=== PATIENT | female | born 1965 | race Caucasian/White ===

== ENCOUNTER 2017-12-24 22:23 | Inpatient (IN) | payer MEDICAID, OTHER ==
[2017-12-24 22:41] VITALS: O2SAT 100
--- NOTE | 2017-12-25 00:15 | ED PDOC ---
HPI: Psych/Substance Abuse Time Seen by Provider: 12/24/17 22:50 Chief Complaint (Nursing): Psychiatric Evaluation Chief Complaint (Provider): Psychiatric Evaluation History Per: Patient History/Exam Limitations: no limitations Onset/Duration Of Symptoms: Days (x 2 months) Current Symptoms Are (Timing): Still Present Associated Symptoms: Depression Additional Complaint(s): 52 year old female with a history of depression presents to the ED for crisis evaluation after having suicidal thoughts. Patient reports she is unable to care for herself or her family. She states she lost 15 pounds in the last two months. Patient has no other medical complaints. PMD: none provided Past Medical History Reviewed: Historical Data, Nursing Documentation, Vital Signs Vital Signs: Last Vital Signs Temp 97.8 F 12/24/17 22:38 Pulse 89 12/24/17 22:38 Resp 16 12/24/17 22:38 BP 128/82 12/24/17 22:38 Pulse Ox 100 12/24/17 22:38 - Medical History PMH: Depression - Surgical History Surgical History: No Surg Hx - Family History Family History: States: Unknown Family Hx - Home Medications Home Medications: Ambulatory Orders Medication Instructions Recorded Albuterol HFA [Ventolin HFA 90 2 puff INH Q4 PRN 12/25/17 mcg/actuation (8 g)] Albuterol/Ipratropium [Duoneb 3 3 ml INH QID 12/25/17 mg/0.5 mg (3 ml) UD] Bupropion HCl [Bupropion HCl] 100 mg PO DAILY 12/25/17 Ergocalciferol (Vitamin D2) 1 cap PO QWK 12/25/17 [Vitamin D2] PARoxetine [Paxil] 20 mg PO DAILY 12/25/17 Sodium Chloride [[place] Saline] 1 spray DIXON Q4 PRN 12/25/17 - Allergies Allergies/Adverse Reactions: Allergies Allergy/AdvReac Type Severity Reaction Status Date / Time azelastine Allergy RASH Verified 12/24/17 22:37 prednisone Allergy RASH Verified 12/24/17 22:37 Sulfa (Sulfonamide Allergy RASH Verified 12/24/17 22:37 Antibiotics) budesonide [From Symbicort] AdvReac SHORTNESS Verified 12/25/17 02:09 OF BREATH cetirizine [From Zyrtec] AdvReac HEADACHE Verified 12/25/17 02:09 clonazepam AdvReac HEADACHE Verified 12/25/17 02:09 fluticasone AdvReac HEADACHE Verified 12/25/17 02:09 formoterol [From Dulera] AdvReac SHORTNESS Verified 12/25/17 02:09 OF BREATH levofloxacin AdvReac HEADACHE Verified 12/25/17 02:09 minocycline AdvReac RASH Verified 12/25/17 02:09 mometasone furoate AdvReac HEADACHE Verified 12/25/17 02:09 [From Asmanex Twisthaler] morphine AdvReac DIARRHEA Verified 12/25/17 02:09 Review of Systems ROS Statement: Except As Marked, All Systems Reviewed And Found Negative Psych: Positive for: Depression, Suicidal ideation Physical Exam - Reviewed Nursing Documentation Reviewed: Yes Vital Signs Reviewed: Yes - Physical Exam Appears: Positive for: Non-toxic, No Acute Distress Head Exam: Positive for: ATRAUMATIC, NORMOCEPHALIC Skin: Positive for: Normal Color, Warm, Dry Eye Exam: Positive for: EOMI, Normal appearance, PERRL Neck: Positive for: Normal, Painless ROM, Supple Cardiovascular/Chest: Positive for: Regular Rate, Rhythm. Negative for: Murmur Respiratory: Positive for: Normal Breath Sounds. Negative for: Respiratory Distress Gastrointestinal/Abdominal: Positive for: Normal Exam, Soft Extremity: Positive for: Normal ROM Neurologic/Psych: Positive for: Alert, Oriented (x 3), Mood/Affect (flat) - Laboratory Results Result Diagrams: 12/25/17 00:20 12/25/17 00:20 - ECG O2 Sat by Pulse Oximetry: 100 (RA) Pulse Ox Interpretation: Normal Medical Decision Making Medical Decision Making: Time: 22:50 Impression: 52 year old female with depression and suicidal ideation Initial Plan: --Alcohol serum --CMP --Crisis evaluation --Urine drug --Urine preg --Urine dip --CBC with differentials --1:1 observation --Urinalysis Patient is medically cleared for psychiatric admission. She was evaluated by Crisis and will be admitted to inpatient as per Dr. Franco. Diagnosis is depression. ---- Scribe Attestation: Documented by Zuleika Arroyo, acting as a scribe for Alcides Thomas MD Provider Scribe Attestation: All medical record entries made by the Scribe were at my direction and personally dictated by me. I have reviewed the chart and agree that the record accurately reflects my personal performance of the history, physical exam, medical decision making, and the department course for this patient. I have also personally directed, reviewed, and agree with the discharge instructions and disposition. Disposition - Clinical Impression Clinical Impression: Depression - Patient ED Disposition Is Patient to be Admitted: Yes - Disposition Disposition Time: 01:23 Condition: STABLE - Pt Status Changed To: Hospital Disposition Of: Inpatient - Admit Certification Admit to Inpatient:: After my assessment, the patient will require hospitalization for at least two midnights. This is because of the severity of symptoms shown, intensity of services needed, and/or the medical risk in this patient being treated as an outpatient.
[2017-12-25 00:41] LABS: BASO % 0.5 % (0.0-2.0); EOS % 0.6 % (0.0-4.0); HEMOGLOBIN 13.5 g/dL (12.0-16.0); LYMPH # 1.4 K/uL (1.0-4.3); LYMPH % 19.7 % (20.0-40.0); MEAN CORPUSCULAR HEMOGLOBIN 32.1 pg (27.0-31.0); MEAN CORPUSCULAR HGB CONC 33.8 g/dL (33.0-37.0); MEAN PLATELET VOLUME 8.7 fl (7.2-11.7); MONO # 0.4 K/uL (0.0-0.8); MONO % 6.3 % (0.0-10.0); NEUT # 5.2 K/uL (1.8-7.0); NEUT % 72.9 % (50.0-75.0); RBC 4.21 Mil/uL (3.80-5.20); RED CELL DISTRIBUTION WIDTH 13.9 % (11.5-14.5); WHITE BLOOD COUNT 7.1 K/uL (4.8-10.8)
[2017-12-25 00:51] LABS: ALB/GLOB RATIO 1.1 (1.0-2.1); ALBUMIN 3.8 g/dL (3.5-5.0); ALT/SGPT 29 U/L (9-52); AST/SGOT 15 U/L (14-36); BLOOD UREA NITROGEN 15 mg/dl (7-17); CALCIUM 9.3 mg/dL (8.4-10.2); GFR AFRICAN-AMERICAN > 60; GFR NON-AFRICAN AMERICAN > 60
[2017-12-25 01:29] LABS: SQUAMOUS EPITHIAL 1 /hpf (0-5); URINE BACTERIA RARE (<OCC); URINE BILIRUBIN NEGATIVE (NEGATIVE); URINE BLOOD LARGE (NEGATIVE); URINE CALCIUM OXALATE CRYSTALS FEW /hpf (<OCC); URINE CLARITY CLOUDY (Clear); URINE COLOR YELLOW (YELLOW); URINE GLUCOSE (UA) NEG (Normal); URINE LEUKOCYTE ESTERASE TRACE Leu/uL (Negative); URINE PROTEIN NEGATIVE (NEGATIVE); URINE UROBILINOGEN 0.2-1.0 mg/dL (0.2-1.0)
[2017-12-25 01:40] LABS: BARBITURATES, UR NEGATIVE (NEGATIVE); BENZODIAZEPINES, UR NEGATIVE (NEGATIVE); OPIATES, UR NEGATIVE (NEGATIVE); PHENCYCLIDINE, UR NEGATIVE (NEGATIVE)
[2017-12-25] MEDS ORDERED: Magnesium Hydroxide Susp 30 ml UD PO PRN (04:40)
--- NOTE | 2017-12-25 04:55 | PCM.BM ---
<Mihir Gonzalez - Last Filed: 12/25/17 04:52> Treatment Plan Problems - Problems identified on initial assessmt Hopelessness/Helplessness Date Initiated: 12/25/17 Time Initiated: 04:53 Assessment reference: NA Status: Active Treatment assets and liabiliti Patient Assests: cooperative, negotiates basic needs Patient Liabilities: financial problems, poor support system, medical problems - Milieu Protocol Maintain good personal hygiene: daily Encourage regular showers, daily Remind patient to perform daily oral care, daily Assist patient to perform ADL's Maintain personal safety: every shift Educate patient to report safety concerns to staff, every shift Monitor environment for contraband/sharps Medication safety: Monitor for expected outcome, potential side effects: every shift, Assess barriers to learning: every shift, Assess readiness for medication education: every shift <Nohemi Santana - Last Filed: 12/25/17 12:54> - Diagnosis (1) Major depressive disorder Status: Acute Interventions: Medication management, Individual and group therapy, Psychoeducation 12/25/17 12:54 <Michelle Harris - Last Filed: 12/29/17 09:52> Family Contact Family contact: Patient agrees to contact, Family has been contacted by patient , Telephone contact initiated by staff Family contact name: Rosa Maria - cousin Family contacted how many times per week?: 1 Family contact comment: [phone] - Goals for Treatment Patient goals for treatment: Pt to be encouraged to attend activity and clinical groups 3-5x per week to identify at least 2 contributing factors to depression and suicide attempt. Psycho-education to be provided to patient/ family regarding benefits of medications and treatment adherence. Pt to be encouraged to participate in group milieu to develop effective coping skills to reduce depression and free of suicide ideation. Coordinate discharge resource needs by providing referral for psychiatric treatment follow up in the community. Discharge/Continuing Care - Education Needs Education Needs: Patient Medication, Patient Diagnosis/Disease Process, Patient Coping Skills, Patient Community resources, Patient Activities of Daily Living, Patient Nutrition, Patient Personal Hygiene/Grooming, Patient Aftercare Safety Plan - Discharge Discharge Criteria: Tolerates medication w/o severe side effects, Free of Suicidal thoughts, Normal sleep pattern, Ability to care for self, Reduction of target symptoms Discharge to:: Home - Additional Comments 12/29/17 09:48 Pt seen and discussed in team meeting. Reason for hospitalization reviewed and discussed. Pt continues to present with multiple somatic preoccupations. Pt's medical and social issues reviewed and discussed. Pt's medications reviewed. Tx plan reviewed. SW to continue to follow case. - Treatment Team Participation Discussed with Family/SO: No Was Patient/Family/SO present at Treatment Team Meeting: Yes
--- NOTE | 2017-12-25 08:57 | CARD ---
APPROVED REPORT EKG Measurement Heart [id number] <Conclusion> Normal sinus rhythm Normal ECG
[2017-12-25 09:39] LABS: T4 7.65 ug/dl (5.5-11.0)
--- NOTE | 2017-12-25 10:10 | RAD ---
HISTORY: chest pain COMPARISON: No prior. FINDINGS: LUNGS: No active pulmonary disease. PLEURA: No significant pleural effusion identified, no pneumothorax apparent. CARDIOVASCULAR: Normal. OSSEOUS STRUCTURES: No significant abnormalities. VISUALIZED UPPER ABDOMEN: Normal. OTHER FINDINGS: None. IMPRESSION: No active disease.
[2017-12-25] MEDS ORDERED: Albuterol HFA 90 mcg/actuation (8 g) INH PRN (12:59)
[2017-12-25] MEDS ORDERED: Albuterol-Ipratrop 3 mg / 0.5 (3 ml) UD INH SCH (13:00)
[2017-12-25] MEDS ORDERED: Albuterol-Ipratrop 3 mg / 0.5 (3 ml) UD INH PRN (13:01)
--- NOTE | 2017-12-25 13:29 | PCM.PSYCH ---
Initial Psychiatric Evaluation - Initial Psychiatric Evaluation Type of Admission: Voluntary Legal Status: Capacity Chief Complaint (in patient's own words): "I'm depressed." Patient's Reaction to Hospitalization: HPI: 52 yo [place] female, presents with worsening depression, somatic preoccupations, intermittent suicidal ideations, feelings of helplessness/ hopelessness/worthlessness, recent weight loss and poor appetite, difficulty sleeping and lack of energy. She denied current ideation to harm herself and was able to contract for safety. No AH/VH/paranoia/delusions PPHx: Denies h/o psychiatric admissions; states that doctors have recommended she take antidepressants in the past, but she would not take them PMHx: Asthma, Bronchitis, Sinusitis, GERD, Difficulty swallowing ALL/Adverse Rx: Sulfa, Morphine, Clonazepam, Prednisone, Mometasone Furoate, Azelastine, Budesonide, Minocycline, Fluticasone, Formoterol, Levoflaxacin SHx: , lives w/ 17 yo son (who is now with her ex ), unemployed, denies drugs/etoh/cig Current Medications: Active Medications Generic Name Dose Route Start Last Admin Trade Name Freq PRN Reason Stop Dose Admin Acetaminophen 650 mg 12/25/17 04:40 Tylenol 325mg Tab PO Q4 PRN for pain 4-7 Al Hydrox/Mg Hydrox/Simethicone 30 ml 12/25/17 04:40 Maalox Plus 30 Ml PO Q4 PRN Dyspepsia Albuterol 2 puff 12/25/17 12:59 Ventolin Hfa 90 Mcg/Actuation (8 G) INH Q4 PRN Shortness of Breath Albuterol/Ipratropium 3 ml 12/25/17 13:01 Duoneb 3 Mg/0.5 Mg (3 Ml) Ud INH QID PRN Shortness of Breath Bupropion HCl 75 mg 12/25/17 13:15 Wellbutrin PO DAILY MATT Ergocalciferol 1 cap 12/29/17 09:00 Drisdol 50,000 Intl Units Cap PO QWK MATT Haloperidol 5 mg 12/25/17 04:40 Haldol PO Q4 PRN Agitation Haloperidol Lactate 5 mg 12/25/17 04:40 Haldol IM Q4 PRN Agitation, Unable to Take PO Magnesium Hydroxide 30 ml 12/25/17 04:40 Milk Of Magnesia PO HS PRN Constipation Past Psychiatric History - Past Psychiatric History Previous Treatment History: None Pertinent Medical Hx (Current Medical&Sleep Prob, Allergies): Allergies Allergy/AdvReac Type Severity Reaction Status Date / Time azelastine Allergy RASH Verified 12/24/17 22:37 prednisone Allergy RASH Verified 12/24/17 22:37 Sulfa (Sulfonamide Allergy RASH Verified 12/24/17 22:37 Antibiotics) budesonide [From Symbicort] AdvReac SHORTNESS Verified 12/25/17 02:09 OF BREATH cetirizine [From Zyrtec] AdvReac HEADACHE Verified 12/25/17 02:09 clonazepam AdvReac HEADACHE Verified 12/25/17 02:09 fluticasone AdvReac HEADACHE Verified 12/25/17 02:09 formoterol [From Dulera] AdvReac SHORTNESS Verified 12/25/17 02:09 OF BREATH levofloxacin AdvReac HEADACHE Verified 12/25/17 02:09 minocycline AdvReac RASH Verified 12/25/17 02:09 mometasone furoate AdvReac HEADACHE Verified 12/25/17 02:09 [From Asmanex Twisthaler] morphine AdvReac DIARRHEA Verified 12/25/17 02:09 Albuterol HFA [Ventolin HFA 90 mcg/actuation (8 g)] 2 puff INH Q4 PRN 12/25/17 Albuterol/Ipratropium [Duoneb 3 mg/0.5 mg (3 ml) UD] 3 ml INH QID 12/25/17 Bupropion HCl [Bupropion HCl] 100 mg PO DAILY 12/25/17 Ergocalciferol (Vitamin D2) [Vitamin D2] 1 cap PO QWK 12/25/17 PARoxetine [Paxil] 20 mg PO DAILY 12/25/17 Sodium Chloride [[place] Saline] 1 spray DIXON Q4 PRN 12/25/17 Review of Systems - Psychiatric Psychiatric: As Per HPI, Abnormal Sleep Pattern, Anhedonia, Anxiety, Change in Appetite, Depression, Difficulty Concentrating, Irritability, Mood Swings, Suicidal Ideation Mental Status Examination - Personal Presentation Personal Presentation: Looks stated age - Affect Affect: Constricted, Depressed - Motor Activity Motor Activity: Psychomotor Retardation - Reliability in Providing Information Reliability in Providing Information: Fair - Speech Speech: Organized - Mood Mood: Depressed - Formal Thought Process Formal Thought Process: No Impairment - Hallucinations/Delusions Additional comments: NO AH/VH/paranoia/delusions - Obsessions/Compulsions Obsessions: No Compulsions: No - Cognitive Functions Orientation: Person, Place, Situation, Time Sensorium: Alert Attention/Concentration: Attentive Judgement: Intact, as evidence by: Insight regarding need for hospitalization Memory: Recent intact, as evidence by: Ability to recall events of the day, Remote intact, as evidenced by: Abilit to recall sig. life events, Remote intact , as evidenced by: Ability to recall historical events - Risk Risk: Suicidal, Diminished functioning - Strength & Assets Inventory Strength & Assets Inventory: Cooperative DSM 5 DX - DSM 5 DSM 5 Diagnosis: Major Depressive Disorder - Recommended/Plan of Treatment Treatment Recommendations and Plan of Treatment: Major Depressive Disorder -Admit to psychiatry unit -Individual and group therapy -Medicine consult -Swallow evaluation -Start Wellbutrin 75 mg PO Daily -Disposition planning Projected ELOS: 5-8 days Discharge Plan and Discharge Criteria: Discharge when patient is psychiatrically stable - Smoking Cessation Smoking Cessation Initiated: No Reason for not providing: Not indicated
[2017-12-26] MEDS: Alum-Mag Hydrox-Simethicone Susp (30 mL) PO PRN (08:28)
--- NOTE | 2017-12-26 13:55 | PCM.PYCHPN ---
Psychiatric Progress Note - Psychiatric Progress Note Patient seen today, length of contact: Patient evaluated, case discussed with team, chart reviewed Patient Chief Complaint: "I'm depressed." Problems Identified/Issues Discussed: Patient continues to be somatically preoccupied. She has various somatic complaints including difficulty swallowing, face numbness, generalized weakness. She is concerned that medications cause her to have more adverse effects. She is no longer agreeable to taking Buproprion because she feels that it made her too weak. She would like to take Lexapro, which she states she has taken in the past and she believes it was effective for her depression. No acute AH/VH/SI/HI. She continues to report feeling depressed and anxious. Medication Change: Yes (Stop Wellbutrin, Start Lexapro 5 mg PO Daily) Medical Record Reviewed: Yes Consults ordered or reviewed: Medicine consult, Swallow evaluation Mental Status Examination - Cognitive Function Orientation: Person, Place, Situation, Time Memory: Intact Attention: WNL Concentration: WNL Association: WNL Fund of Knowledge: [facility] Decription of patient's judgement and insights: Poor I/ fair J - Mood Mood: Depressed - Affect Affect: Constricted, Depressed - Formal Thought Process Formal Thought Process: Other (+Various somatic preoccupations) Psychotic Thoughts and Behaviors: NO AH/VH/paranoia - Suicidal Ideation Suicidal Ideation: No - Homicidal Ideation Homicidal Ideation: No Goal/Treatment Plan - Goal/Treatment Plan Need for Continued Stay: Severe depression anxiety, Discharge may exacerbated symptoms Progress Toward Problem(s) and Goals/Treatment Plan: Major Depressive Disorder; r/o Somatic Symptom Disorder vs Illness Anxiety Disorder vs Conversion Disorder -Individual and group therapy -Medicine consult -Neurology consult -Swallow evaluation -Stop Wellbutrin -Start Lexapro 5 mg PO Daily -Disposition planning Estimated Date of D/C: 12/30/17
--- NOTE | 2017-12-26 17:48 | CP.PCM.CON ---
History of Present Illness - History of Present Illness History of Present Illness: 52 yo female with history of Asthma admitted to [facility] because of worsening depression. Review of Systems - Review of Systems All systems: reviewed and no additional remarkable complaints except (aside from those mentioned above, 12 point system review were negative by me) Past Patient History - Tetanus Immunizations Tetanus Immunization: Unknown - Past Social History Smoking Status: Never Smoked Alcohol: None Drugs: Denies Home Situation {Lives}: Alone - CARDIAC Hx Cardiac Disorders: No - PULMONARY Hx Respiratory Disorders: Yes Hx Asthma: Yes - NEUROLOGICAL HX Cerebrovascular Accident: No Hx Seizures: No - HEENT Hx Sinusitis: Yes - RENAL Hx Chronic Kidney Disease: No - ENDOCRINE/METABOLIC Hx Endocrine Disorders: No - HEMATOLOGICAL/ONCOLOGICAL Hx Blood Disorders: No Hx Cancer: No Hx Human Immunodeficiency Virus (HIV): No - INTEGUMENTARY Hx Dermatological Problems: No - MUSCULOSKELETAL/RHEUMATOLOGICAL Hx Musculoskeletal Disorders: No - GASTROINTESTINAL Hx Gastrointestinal Disorders: No - GENITOURINARY/GYNECOLOGICAL Hx Genitourinary Disorders: No Hx Sexually Transmitted Disorders: No - PSYCHIATRIC Hx Anxiety: Yes Hx Depression: Yes Hx Substance Use: No - SURGICAL HISTORY Hx Hysterectomy: Yes (March 2017) - ANESTHESIA Hx Anesthesia: Yes Hx Anesthesia Reactions: No Hx Malignant Hyperthermia: No Has any member of the family had a problem w/ anesthesia?: No Meds Allergies/Adverse Reactions: Allergies Allergy/AdvReac Type Severity Reaction Status Date / Time azelastine Allergy RASH Verified 12/24/17 22:37 prednisone Allergy RASH Verified 12/24/17 22:37 Sulfa (Sulfonamide Allergy RASH Verified 12/24/17 22:37 Antibiotics) budesonide [From Symbicort] AdvReac SHORTNESS Verified 12/25/17 02:09 OF BREATH cetirizine [From Zyrtec] AdvReac HEADACHE Verified 12/25/17 02:09 clonazepam AdvReac HEADACHE Verified 12/25/17 02:09 fluticasone AdvReac HEADACHE Verified 12/25/17 02:09 formoterol [From Dulera] AdvReac SHORTNESS Verified 12/25/17 02:09 OF BREATH levofloxacin AdvReac HEADACHE Verified 12/25/17 02:09 minocycline AdvReac RASH Verified 12/25/17 02:09 mometasone furoate AdvReac HEADACHE Verified 12/25/17 02:09 [From Asmanex Twisthaler] morphine AdvReac DIARRHEA Verified 12/25/17 02:09 - Medications Medications: Current Medications Acetaminophen (Tylenol 325mg Tab) 650 mg PO Q4 PRN PRN Reason: for pain 4-7 Al Hydrox/Mg Hydrox/Simethicone (Maalox Plus 30 Ml) 30 ml PO Q4 PRN PRN Reason: Dyspepsia Last Admin: 12/26/17 08:28 Dose: 30 ml Albuterol (Ventolin Hfa 90 Mcg/Actuation (8 G)) 2 puff INH Q4 PRN PRN Reason: Shortness of Breath Albuterol/Ipratropium (Duoneb 3 Mg/0.5 Mg (3 Ml) Ud) 3 ml INH QID PRN PRN Reason: Shortness of Breath Ergocalciferol (Drisdol 50,000 Intl Units Cap) 1 cap PO QWK MATT Escitalopram Oxalate (Lexapro) 5 mg PO DAILY MATT Last Admin: 12/26/17 16:07 Dose: 5 mg Haloperidol (Haldol) 5 mg PO Q4 PRN PRN Reason: Agitation Haloperidol Lactate (Haldol) 5 mg IM Q4 PRN PRN Reason: Agitation, Unable to Take PO Magnesium Hydroxide (Milk Of Magnesia) 30 ml PO HS PRN PRN Reason: Constipation Physical Exam - Constitutional Appears: No Acute Distress - Head Exam Head Exam: ATRAUMATIC - Eye Exam Eye Exam: absent: Scleral icterus - ENT Exam ENT Exam: Mucous Membranes Moist - Neck Exam Neck exam: Negative for: Meningismus - Respiratory Exam Respiratory Exam: absent: Rales, Rhonchi, Wheezes, Respiratory Distress - Cardiovascular Exam Cardiovascular Exam: REGULAR RHYTHM, +S1, +S2 - GI/Abdominal Exam GI & Abdominal Exam: Soft. absent: Tenderness - Rectal Exam Rectal Exam: Deferred - Extremities Exam Extremities exam: Negative for: calf tenderness, pedal edema - Back Exam Back exam: absent: tenderness - Neurological Exam Neurological exam: Alert, Oriented x3 - Psychiatric Exam Psychiatric exam: Anxious - Skin Skin Exam: Dry, Intact Results - Vital Signs Recent Vital Signs: Last Vital Signs Temp 97.7 F 12/26/17 16:17 Pulse 79 12/26/17 16:17 Resp 18 12/26/17 16:17 BP 107/71 12/26/17 16:17 Pulse Ox 100 12/25/17 05:26 - Labs Result Diagrams: 12/25/17 00:20 12/25/17 00:20 Labs: Laboratory Results - last 24 hr 12/25/17 08:36 RPR Nonreactive Assessment & Plan (1) Depression Status: Acute Comment: psyche is managing
[2017-12-26 21:42] LABS: FOLATE 8.9 ng/mL
[2017-12-27] MEDS: Alum-Mag Hydrox-Simethicone Susp (30 mL) PO PRN ×2 (08:46→23:47)
--- NOTE | 2017-12-27 09:53 | PCM.PYCHPN ---
Psychiatric Progress Note - Psychiatric Progress Note Patient seen today, length of contact: Patient evaluated, case discussed with team, chart reviewed Patient Chief Complaint: pt has remained with somatic thoughts feeling she is very weak and need I/v fluids.pt has remained with poor insight fixated on her body. Medication Change: Yes (Stop Wellbutrin, Start Lexapro 5 mg PO Daily) Medical Record Reviewed: Yes Mental Status Examination - Cognitive Function Orientation: Person, Place, Situation, Time Memory: Intact Attention: WNL Concentration: WNL Association: WNL Fund of Knowledge: WNL - Mood Mood: Depressed - Affect Affect: Constricted, Depressed - Formal Thought Process Formal Thought Process: Other (+Various somatic preoccupations) - Suicidal Ideation Suicidal Ideation: No - Homicidal Ideation Homicidal Ideation: No Goal/Treatment Plan - Goal/Treatment Plan Need for Continued Stay: Severe depression anxiety, Discharge may exacerbated symptoms Progress Toward Problem(s) and Goals/Treatment Plan: will continue to titrate lexapro as needed to stabilize pt.Reassurance provided Estimated Date of D/C: 12/30/17
[2017-12-28] MEDS: Sucralfate 1 gm/10 ml Oral Susp UD PO SCH ×4 (09:03→21:06)
[2017-12-28] MEDS: Pantoprazole 40 mg EC Tab PO SCH (09:03)
--- NOTE | 2017-12-28 16:35 | PCM.PYCHPN ---
Psychiatric Progress Note - Psychiatric Progress Note Patient seen today, length of contact: Patient evaluated, case discussed with team, chart reviewed Patient Chief Complaint: pt has been very attention seeking and needy with vague physical complaints and hascremained with somatic thoughts feeling she is very weak and need I/v fluids.pt has remained with poor insight fixated on her body.pt has not been seen by neurology yet. Medication Change: No Medical Record Reviewed: Yes Mental Status Examination - Cognitive Function Orientation: Person, Place, Situation, Time Memory: Intact Attention: WNL Concentration: WNL Association: WNL Fund of Knowledge: WNL - Mood Mood: Depressed - Affect Affect: Constricted, Depressed - Formal Thought Process Formal Thought Process: Other (+Various somatic preoccupations) - Suicidal Ideation Suicidal Ideation: No - Homicidal Ideation Homicidal Ideation: No Goal/Treatment Plan - Goal/Treatment Plan Need for Continued Stay: Severe depression anxiety, Discharge may exacerbated symptoms Progress Toward Problem(s) and Goals/Treatment Plan: will continue to titrate lexapro as needed to stabilize pt .Reassurance provided regarding her physical complaints still awaiting neuro consult. Disposition as per dr grissom Estimated Date of D/C: 12/30/17
[2017-12-29 05:36] VITALS: RESP 20
[2017-12-29] MEDS ORDERED: Ergocalciferol 50,000 Intl Units Cap PO SCH (09:00)
[2017-12-29] MEDS: Pantoprazole 40 mg EC Tab PO SCH ×3 (09:32→11:40)
[2017-12-29] MEDS: Sucralfate 1 gm/10 ml Oral Susp UD PO SCH ×5 (09:32→21:32)
--- NOTE | 2017-12-29 11:41 | PCM.PYCHPN ---
Psychiatric Progress Note - Psychiatric Progress Note Patient seen today, length of contact: Patient evaluated, case discussed with team, chart reviewed Patient Chief Complaint: "I'm sick doctor." Problems Identified/Issues Discussed: Patient continues to be somatically preoccupied and does not want to take the Lexapro due to excessive concerns about side effects. Psychoeducation provided that the patient would benefit from outpatient therapy. She is histrionic/ dramatic and has fluctuating medical complaints, including feeling "stock plan administrator my head and stock plan administrator my chest" (no chest pain or pressure). No AH/VH/paranoia/ delusions Medication Change: No Medical Record Reviewed: Yes Consults ordered or reviewed: Medicine consult, Swallow evaluation Mental Status Examination - Cognitive Function Orientation: Person, Place, Situation, Time Memory: Intact Attention: WNL Concentration: WNL Association: WNL Fund of Knowledge: WN Decription of patient's judgement and insights: Poor insight into somatic preoccupation - Mood Mood: Anxious - Affect Affect: Broad - Speech Speech: Appropriate - Formal Thought Process Formal Thought Process: Other (+Various somatic preoccupations) Psychotic Thoughts and Behaviors: NO AH/VH/paranoia - Suicidal Ideation Suicidal Ideation: No - Homicidal Ideation Homicidal Ideation: No Goal/Treatment Plan - Goal/Treatment Plan Need for Continued Stay: Discharge may exacerbated symptoms Progress Toward Problem(s) and Goals/Treatment Plan: Somatic Symptom Disorder vs Illness Anxiety Disorder; Major Depressive Disorder -Individual and group therapy -Medicine consult -Swallow evaluation -Continue Lexapro 5 mg PO Daily -Disposition planning Estimated Date of D/C: 12/30/17
--- NOTE | 2017-12-29 15:50 | CP.PCM.PN ---
Subjective - Date & Time of Evaluation Date of Evaluation: 12/29/17 Time of Evaluation: 12:00 - Subjective Subjective: Patient seen on follow up after called by nurse s/p fall. the patient is a poor historian due to her psychiatric illness but relates that she remembers falling this morning; however does not recall if she hit her head or not. She denies any loss of conciousness. Denies any headache at present. Does have multiple somatic complaints such as feeling of warmth in her chest and back; this was present before the fall. She denies any new focal weakness. Objective - Vital Signs/Intake and Output Vital Signs (last 24 hours): Temp Pulse Resp BP Pulse Ox 97.3 F L 92 H 20 117/71 100 12/29/17 05:35 12/29/17 05:35 12/29/17 05:35 12/29/17 05:35 12/25/17 05:26 - Medications Medications: Current Medications Acetaminophen (Tylenol 325mg Tab) 650 mg PO Q4 PRN PRN Reason: for pain 4-7 Last Admin: 12/27/17 23:47 Dose: 650 mg Al Hydrox/Mg Hydrox/Simethicone (Maalox Plus 30 Ml) 30 ml PO Q4 PRN PRN Reason: Dyspepsia Last Admin: 12/27/17 23:47 Dose: 30 ml Albuterol (Ventolin Hfa 90 Mcg/Actuation (8 G)) 2 puff INH Q4 PRN PRN Reason: Shortness of Breath Last Admin: 12/27/17 08:46 Dose: 2 puff Albuterol/Ipratropium (Duoneb 3 Mg/0.5 Mg (3 Ml) Ud) 3 ml INH QID PRN PRN Reason: Shortness of Breath Last Admin: 12/27/17 10:00 Dose: 3 ml Ergocalciferol (Drisdol 50,000 Intl Units Cap) 1 cap PO QWK MATT Escitalopram Oxalate (Lexapro) 5 mg PO DAILY [facility] Last Admin: 12/29/17 09:32 Dose: Not Given Lorazepam (Ativan) 0.5 mg PO Q8 PRN PRN Reason: Anxiety Magnesium Hydroxide (Milk Of Magnesia) 30 ml PO HS PRN PRN Reason: Constipation Pantoprazole Sodium (Protonix Ec Tab) 40 mg PO DAILY [facility] Last Admin: 12/29/17 11:40 Dose: 40 mg Sucralfate (Carafate Oral Susp) 1 gm PO QID [facility] Last Admin: 12/29/17 13:27 Dose: Not Given - Labs Labs: 12/25/17 00:20 12/25/17 00:20 - Additional Findings Additional findings: Physical exam: Constitutional- cooperative, awake, alert Head- NCAT, PERRL Eye- PERRL, EOMI ENT- normal exam, MMM. Neck- normal inspection, supple, no JVD Respiratory- CTAB, no wheezes rales rhonchi Cardiovascular- RRR, +S1, +S2 no MRG GI/Abdominal- normal bowel sounds, soft, no mass, no hsm Skin- warm, dry Extremities Exam- normal capillary refill, normal inspection Neurological Exam- alert, awake, oriented Psych- labile mood, tangential thought, preoccupation with somatic c/o Assessment and Plan - Assessment and Plan (Free Text) Plan: Mechanical fall? - Patient currently with no neurological deficits or headache - Normal neuro exam - No need for CT head at this time - reassess if patient has worsening headache or neurological complaints Rest of psychiatric management as per primary
[2017-12-30 06:04] VITALS: BP 116/80; PULSE 81; TEMP 97.6
[2017-12-30] MEDS: Sucralfate 1 gm/10 ml Oral Susp UD PO SCH ×2 (08:48→12:50)
[2017-12-30] MEDS: Pantoprazole 40 mg EC Tab PO SCH (08:50)
--- NOTE | 2017-12-30 09:24 | PCM.PYCHDC ---
Mental Status Examination - Mental Status Examination Orientation: Person, Place, Situation, Time Memory: Intact Mood: Neutral Affect: Broad Speech: Appropriate Attention: WNL Concentration: WNL Association: WNL Fund of Knowledge: WNL Formal Thought Process: No Impairment Description of patient's judgement and insight: Improving I/J Psychotic Thoughts and Behaviors: NO AH/VH/paranoia Suicidal Ideation: No Current Homicidal Ideation?: No Discharge Summary - Discharge Note Reason for Hospitalization: HPI: 52 yo [place] female, presents with worsening depression, somatic preoccupations, intermittent suicidal ideations, feelings of helplessness/ hopelessness/worthlessness, recent weight loss and poor appetite, difficulty sleeping and lack of energy. She denied current ideation to harm herself and was able to contract for safety. No AH/VH/paranoia/delusions PPHx: Denies h/o psychiatric admissions; states that doctors have recommended she take antidepressants in the past, but she would not take them PMHx: Asthma, Bronchitis, Sinusitis, GERD, Difficulty swallowing ALL/Adverse Rx: Sulfa, Morphine, Clonazepam, Prednisone, Mometasone Furoate, Azelastine, Budesonide, Minocycline, Fluticasone, Formoterol, Levoflaxacin SHx: , lives w/ 17 yo son (who is now with her ex ), unemployed, denies drugs/etoh/cig Consultations:: List each consultation separately and include: 1. Reason for request. 2. Findings. 3. Follow-up Consultations: Medicine consult, Swallow evaluation Summary of Hospital Course include:: 1. Description of specific treatment plan utilized for patients during their course of treatmen. 2. Summarize the time- course for resolution of acute symptoms and/or regressed behaviors. 3. Describe issues identified and worked on during hospitalization. 4. Describe medication utilized. 5. Describe medical problems identified and treated. 6. Reassessment of suicide risk Summary of Hospital Course: Patient admitted to the psychiatry unit. Individual and group therapy were provided. Psychoeducation provided on Somatic Symptom Disorder and Illness Anxiety Disorder. Patient informed that she would benefit from filler leaf cutter long psychotherapy in addition to continuing Lexapro. Patient is psychiatrically stable for discharge at this time. - Diagnosis (1) Somatic symptom disorder Current Visit: Yes Status: Chronic (2) Major depressive disorder Current Visit: Yes Status: Chronic - Final Diagnosis (DSM 5) Condition upon Discharge: STABLE DSM 5: Somatic Symptoms Disorder; Major Depressive Disorder Disposition: HOME/ ROUTINE Follow-up Treatment Plan: Somatic Symptom Disorder vs Illness Anxiety Disorder; Major Depressive Disorder -Continue Lexapro 5 mg PO Daily -Psychoeducation provided on the importance of filler leaf cutter long psychotherapy to deal with Somatic Symptom Disorder Prescriptions/Medication Reconciliation: Escitalopram [Lexapro] 5 mg PO DAILY #30 tab Pantoprazole [Protonix EC Tab] 40 mg PO DAILY #30 ect - Smoking Cessation Smoking Cessation Medication prescribed: No Reason for not providing: Not indicated - Antipsychotic Medications Pt discharged on 2 or more routine antipsychotic medications: No
== END 2017-12-30 13:20 | disposition home or self-care (01) | DRG 427 ==
LOC: H.ER 22:23 → H.ERHOLD 12-25 01:23 → H.STEP 12-25 04:35
PROVIDERS: ADMIT Psychiatry & Neurology Psychiatry; ATTEND Psychiatry & Neurology Psychiatry
PROC: GZHZZZZ Group Psychotherapy (ICD-10-PCS; principal; 2017-12-25)
DX: F45.9 Somatoform disorder, unspecified (principal); Z88.3 Allergy status to other anti-infective agents; Z88.5 Allergy status to narcotic agent; Z88.2 Allergy status to sulfonamides; J45.909 Unspecified asthma, uncomplicated; K21.9 Gastro-esophageal reflux disease without esophagitis; R45.851 Suicidal ideations; R13.10 Dysphagia, unspecified; F32.9 Major depressive disorder, single episode, unspecified